=== PATIENT | female | born 1975 | race Caucasian/White ===

== ENCOUNTER 2018-04-01 03:44 | Emergency (ER) | payer OTHER ==
[~2018-04-01] VITALS: Ht 172.7 cm; Wt 156.4 kg
[~2018-04-01 03:44] MED LIST: ADVAIR; ADVAIR 250/501 DISK IH; ASPIR-TRIN325 M1 PO; AVALIDE PO; CLONIDINE HCL0.1 MG PO; CYMBALTA60 MG PO; HYDROCHLOROTH12.5 M3 PO; LISINO; NEXIUM40 MG PO; PANTOPRAZOLE SO40 MG PO; PRISTIQ50 MG; TABLE PO; THEO-DUR,THEOC100 MG PO; TOPROL XL100 MG PO; VALTURNA 150-11 EACH; WELLBUTRIN SR150 MG PO
[2018-04-01 07:18] LABS: HEMATOCRIT 29.2 % (36.0-46.0); HEMOGLOBIN 9.2 G/DL (11.9-15.5); MCH 24.3 PG (29.0-34.0); MCHC 31.5 G/DL (30.0-36.0); MCV 77.2 FL (83-99); PLATELET COUNT 313 K/uL (156-360); RBC DIS.WIDTH-CV 15.8 % (11.8-14.6); RBC DIS.WIDTH-SD 44.1 % (39-53); RED BLOOD COUNT 3.78 M/uL (3.80-5.20); WHITE BLOOD COUNT 8.2 K/uL (4.1-10.2)
[2018-04-01 08:12] LABS: ALBUMIN 3.5 G/DL (3.2-4.8); CHLORIDE 101 MEQ/L (99-109); POTASSIUM 3.6 MEQ/L (3.7-5.4); SODIUM 135 MEQ/L (136-147); TOTAL BILIRUBIN 0.3 MG/DL (0.0-1.0)
[2018-04-01 08:18] LABS: ALKALINE PHOSPHATASE 87 IU/L (3-129); ALT (GPT) 9 IU/L (3-49); AST (GOT) 10 IU/L (2-34); CREATININE 0.5 MG/DL (0.6-1.3); GFR ESTIMATE (CALCULATED) > 59 mL/min/; GLUCOSE 90 mg/dL (70-99); TOTAL PROTEIN 7.1 G/DL (6.4-8.3); UREA NITROGEN (BUN) 10 mg/dL (9-23)
[2018-04-01 08:20] LABS: QUANTITATIVE HCG < 4.0 MIU/ML
[2018-04-01] MEDS ORDERED: BACTRIM,SEPT1 TABLET PO (10:50)
[2018-04-01 11:40] VITALS: BP 157/98
== END 2018-04-01 11:40 | disposition home or self-care (01) ==
LOC: EME 03:44
PROVIDERS: Emergency Medicine
DX: L03.311 Cellulitis of abdominal wall (principal); K42.9 Umbilical hernia without obstruction or gangrene; F32.9 Major depressive disorder, single episode, unspecified; F41.9 Anxiety disorder, unspecified; I10 Essential (primary) hypertension; J45.909 Unspecified asthma, uncomplicated; K21.9 Gastro-esophageal reflux disease without esophagitis; M79.7 Fibromyalgia
CPT/HCPCS: 74177; 80053; 81003; 84702; 85027; 99281; 99285; J7030